=== PATIENT | female | born 1975 | race Two or more races ===

== ENCOUNTER 2018-01-03 08:02 | Emergency (ER) | payer MEDICAID ==
[~2018-01-03] VITALS: Ht 160 cm; Wt 97.5 kg
[2018-01-03 08:28] VITALS: BP 117/70
== END 2018-01-03 10:28 | disposition home or self-care (01) ==
LOC: ER 08:02
DX: S70.01XA Contusion of right hip, initial encounter (principal); F17.210 Nicotine dependence, cigarettes, uncomplicated; W01.0XXA Fall on same level from slipping, tripping and stumbling without subsequent striking against object, initial encounter; Y93.89 Activity, other specified; Y92.098 Other place in other non-institutional residence as the place of occurrence of the external cause; Y99.8 Other external cause status
CPT/HCPCS: 73502

== ENCOUNTER 2019-03-13 09:23 | Emergency (ER) | payer MEDICAID ==
[~2019-03-13] VITALS: Ht 162.6 cm; Wt 103.0 kg
[2019-03-13 09:42] VITALS: BP 135/91
[2019-03-13] MEDS ORDERED: IBUPROFEN 800 MG TAB PO ONE (10:00)
== END 2019-03-13 10:45 | disposition home or self-care (01) ==
LOC: ER 09:23
DX: S20.211A Contusion of right front wall of thorax, initial encounter (principal); F12.10 Cannabis abuse, uncomplicated; F17.210 Nicotine dependence, cigarettes, uncomplicated; W51.XXXA Accidental striking against or bumped into by another person, initial encounter; Y93.89 Activity, other specified; Y92.89 Other specified places as the place of occurrence of the external cause; Y99.8 Other external cause status
CPT/HCPCS: 71101

== ENCOUNTER 2021-11-12 08:35 | Emergency (ER) | payer MEDICAID ==
[~2021-11-12] VITALS: Ht 162.6 cm; Wt 114.3 kg
[2021-11-12 09:03] VITALS: BP 139/67
[2021-11-12 09:23] LABS: Albumin 3.7 g/dL (3.4-5.0); Calcium 8.7 mg/dL (8.5-10.1); Potassium 3.8 mmol/L (3.5-5.1)
[2021-11-12 09:26] LABS: BUN/Creatinine Ratio 25.5; Bilirubin, Total 0.2 mg/dL (0.2-1.0); Total Protein 7.6 g/dL (6.4-8.2)
[2021-11-12 09:54] LABS: Basophils # (auto) 0.1 10 ^3/uL (0-0.2); Basophils % (auto) 0.9 % (0.0-2.0); Eosinophils # (auto) 0.2 10 ^3/uL (0-0.8); Eosinophils % (auto) 2.3 % (0.0-7.0); Hemoglobin 7.1 g/dL (12.2-16.2); Lymphocytes # (auto) 3.1 10 ^3/uL (0.4-5.4); Mean Corpuscular Hemoglobin 18.2 pg (28.0-32.0); Mean Corpuscular Hgb Conc. 29.2 g/dL (32.0-36.0); Mean Corpuscular Volume 62.4 fL (80.0-100.0); Monocytes # (auto) 0.4 10 ^3/uL (0-1.3); Monocytes % (auto) 5.9 % (0.0-12.0); Nucleated Red Blood Cells % 0.1 %
[2021-11-12 09:56] LABS: Hematocrit 24.4 % (36.0-46.0); Lymphocytes % (auto) 43.8 % (10.0-50.0); Neutrophils # (auto) 3.3 10 ^3/uL (1.6-8.6); Neutrophils % (auto) 47.1 % (37.0-80.0); Red Blood Cells 3.91 10^6/uL (4.0-5.20); Red Cell Distribution Width 20.2 % (11.8-14.3)
[2021-11-12 09:58] LABS: Urine Bacteria NONE SEEN /hpf (None Seen); Urine Blood Negative /uL (Negative); Urine Mucus FEW (None Seen); Urine Specific Gravity 1.032 (1.001-1.035); Urine WBC <1 /hpf (0 - 5)
[2021-11-12] MEDS ORDERED: FERR-20 PO (10:12)
[2021-11-12] MEDS ORDERED: FERROUS SULFATE 325mg EC TAB PO ONE (10:15)
== END 2021-11-12 10:34 | disposition home or self-care (01) ==
LOC: ER 08:35
DX: D64.9 Anemia, unspecified (principal); F17.210 Nicotine dependence, cigarettes, uncomplicated; Z90.49 Acquired absence of other specified parts of digestive tract; Z90.89 Acquired absence of other organs
CPT/HCPCS: 36415; 80053; 81001; 85025; 86850; 86900; 86901